=== PATIENT | male | born 1970 | race Caucasian/White ===

== ENCOUNTER 2021-06-19 11:42 | Inpatient (IN) | payer MEDICAID ==
[2021-06-19] VITALS (34 sets, daily range): BP systolic 57–122; BP diastolic 34–77
[~2021-06-19] VITALS: Ht 170.2 cm; Wt 77.1 kg
[2021-06-19] MEDS ORDERED: IV LR 1000 ML 1,000 ML BAG IV ONE (12:00)
--- NOTE | 2021-06-19 12:12 | NUR ---
PT BIBRA C/O LOW BP SBP IN 80. PT CONNECTED TO MONITOR BP IS 150/80.
[2021-06-19] MEDS ORDERED: CEFEPIME 2 GM in IV D5W 100 ML IV SCH (13:00)
[2021-06-19 13:21] LABS: CARBON DIOXIDE 21 mmol/L (21-32); CHLORIDE 114 mmol/L (98-107); CREATININE 1.8 mg/dL (0.6-1.3); GLUCOSE 121 mg/dL (74-106); SODIUM SERUM 153 mmol/L (136-145)
[2021-06-19 13:24] LABS: POTASSIUM 1.8 mmol/L (3.5-5.1); UREA NITROGEN, BLOOD 105 mg/dL (7-18)
[2021-06-19 13:26] LABS: ALANINE AMINOTRANSFERASE 42 U/L (12-78); ALKALINE PHOSPHATASE 159 U/L (46-116); ASPARTATE AMINOTRANSFERASE 23 U/L (15-37); BILIRUBIN,DIRECT 0.2 mg/dL (0.0-0.2); BILIRUBIN,TOTAL 0.7 mg/dL (0.2-1.0); TOTAL PROTEIN, SERUM 7.4 g/dL (6.4-8.2)
[2021-06-19] MEDS ORDERED: ASPIRIN 300 MG/SUPP.RECT RC ONE ×2 (13:30→13:39)
[2021-06-19] MEDS ORDERED: DOXYCYCLINE 100 MG in IV D5W 100 ML IV SCH (13:30)
[2021-06-19] MEDS ORDERED: NOREPINEPHRINE 8 MG in IV NS 0.9% 242 ML IV PRN ×2 (13:30→18:30)
[2021-06-19] MEDS ORDERED: POTASSIUM CHLORIDE 20 MEQ TAB.PRT.SR PO ONE (13:30)
[2021-06-19] MEDS ORDERED: POTASSIUM CHLORIDE 10 MEQ/50 ML PREMIXED IVPB FOR PERIPHERAL LINE IV ONE (13:30)
[2021-06-19] MEDS ORDERED: VANCOMYCIN 1 GM in IV D5W 250ml IV ONE (13:30)
[2021-06-19 13:33] LABS: ALBUMIN 2.2 g/dL (3.4-5.0)
[2021-06-19] MEDS ORDERED: NOREPINEPHRINE 4 MG/4 ML AMPUL IV ONE (13:37)
[2021-06-19] MEDS ORDERED: POTASSIUM CL. PREMIX PERIPHER. 50 ML ONE (13:37)
[2021-06-19] MEDS ORDERED: CEFEPIME 1 GM VIAL ONE (13:37)
--- NOTE | 2021-06-19 13:49 | NUR ---
ICU 256 ASSIGNED
[2021-06-19] MEDS ORDERED: POTASSIUM CHLORIDE 20 MEQ POWDER PACKET PO ONE (14:00)
--- NOTE | 2021-06-19 14:07 | NUR ---
CALLED ICU FOR REPORT RN NOT AVAILABLE.
--- NOTE | 2021-06-19 14:34 | NUR ---
REPORT GIVEN TO TRANG (GEE).
[2021-06-19] MEDS ORDERED: POTASSIUM CHLORIDE 20 MEQ POWDER PACKET ONE (14:47)
[2021-06-19 14:55] LABS: MEAN CORPUSCULAR VOLUME 90 fL (80-96); MONOCYTES # (AUTO) 0.3 K/uL (0.1-1.30)
[2021-06-19 15:02] LABS: BASOPHILS # (AUTO) 0.1 K/uL (0.0-0.2); BASOPHILS % (AUTO) 0.5 % (0.0-2.0); LYMPHOCYTES # (AUTO) 1.3 K/uL (0.8-4.8); LYMPHOCYTES % (AUTO) 11.6 % (20.0-44.0); MEAN CORPUSCULAR HGB CONC 32 g/dl (31.0-36.0); MONOCYTES % (AUTO) 2.2 % (2.0-12.0); NEUTROPHILS # (AUTO) 9.6 K/uL (1.8-8.9); NEUTROPHILS % (AUTO) 85.7 % (43.0-81.0); PLATELET COUNT (AUTO) 427 K/uL (150-450); WHITE BLOOD COUNT (AUTO) 11.2 K/uL (4.3-11.0)
[2021-06-19 15:24] LABS: RED BLOOD CELL COUNT(AUTO) 1.83 MIL/uL (4.5-6.0)
[2021-06-19 15:26] LABS: HEMATOCRIT 17 % (39-51); HEMOGLOBIN 5.3 g/dL (13.5-17.5)
[2021-06-19] MEDS ORDERED: PANTOPRAZOLE 40 MG VIAL IV ONE (15:30)
[2021-06-19] MEDS ORDERED: PANTOPRAZOLE 40 MG VIAL ONE (15:59)
[2021-06-19] MEDS ORDERED: MEROPENEM 500 MG in IV NS 0.9% 50 ML IV SCH (16:00)
[2021-06-19] MEDS ORDERED: ONDANSETRON HCL/PF 4 MG/2 ML VIAL IVP PRN (16:00)
[2021-06-19] MEDS ORDERED: Z GUARD REMEDY 4 OZ OINT TP PRN (16:00)
[2021-06-19] MEDS ORDERED: DEXTROSE 50%-WATER 50 ML DISP.SYRIN IV PRN (16:00)
[2021-06-19 16:15] LABS: BAND % (MANUAL) 20 % (0.0-5.0); LYMPHOCYTES % (MANUAL) 19 % (16-48); METAMYELOCYTES % 1 % (0-0); MONOCYTES % (MANUAL) 5 % (0-11.0); NEUTROPHILS % (MANUAL) 55 (42-76)
--- NOTE | 2021-06-19 16:55 | NUR ---
PT TRANSFERRED PER ACLS PROTOCOL.
--- NOTE | 2021-06-19 17:00 | NUR ---
KEY ACCOUNT REPRESENTATIVE NOTES PATIENT GET ADMITTED FROM ER ON DX OF HYPERTENSIN, SEPSIS, PNA, AFR, ANEMIA. PATIENT NON-VERBAL TRACH/VENT SHILEY -8 DEPENDENT FIO2-40%, PEEP-5. PATIENTS EYES IS OPEN, UPPER AND LOWER EXTREMITIES SEVERE WEAKNESS, BED BOUND. SKIN ASSESSMENT DONE PICTURE TAKEN, IV ACCESS ON CALRE INTACT PICC LINE, WOUND CONSULT TRIGGERED. T-100.3F, P-132, R-29, O2-100%, GRECO DRAINING LIGHT YELLOW OUTPUT. GT IS DISLODGED AND CLAMPED. HOSPITALIST AWARE OF NEW PATIENT AND MEDICATION. GI MD AWARE OF CONSULTATION ABOUT GT. NEW ORDER TAKEN AND CARRIED OUT. WILL FOLLOW UP.
--- NOTE | 2021-06-19 17:49 | NUR ---
FAMILY CONTACT: DISPLAY MANAGER SPOKE TO PATIENTS SISTER DARIO NUÑEZ AND MARYAM MCKEON, PT'S ON THE PHONE TOGETHER TO GET CONSENT FOR BLOOD TRANSFUSION. PT'S MARYAM SPEAKS SOME HUNGARIAN BUT NOT WELL. DARIO REQUESTED THAT IF WE NEED TO GET A HOLD OF THE TO PLEASE CALL PT'S SISTER DARIO NUÑEZ AT [phone] AND SHE WILL GET PT'S MARYAM ON THE PHONE TO HELP TRANSLATE. MARYAM AGREED AND ALSO REQUESTED THAT WE CALL DAIRO AND SHE WILL GET MARYAM ON THE PHONE ALSO.
[2021-06-19] MEDS: BLOOD SUGAR DIAGNOSTIC 1 EACH STRIP IN SCH (18:09)
[2021-06-19] MEDS: MEROPENEM 1 G in IV NS 0.9% 100 ML IV SCH (18:10)
[2021-06-19] MEDS: IV D5/ 0.9% NACL 1,000 ML IV PRN (18:12)
--- NOTE | 2021-06-19 18:48 | NUR ---
RN NOTES STARTED ONE UNITS OF BLOOD TRANSFUSION AT THIS TIME, T99.6, R-28M BP113/69, P-130, O2100% PATIENT TRACH/VENT DEPENDENT. INFUSING LEVOPHED 0.5 MCG/KG/HR, D5NS@100ML/HR, AND MERREM 200ML/HR ON RIGHT PICC LINE INTACT. FIFE NEXT TO THE BED, ENDORSED ONCOMING NURSE FOLLOW PLAN OF CAR.
--- NOTE | 2021-06-19 19:05 | NUR ---
RECEIVED PT ON BED AWAKE EYES OPEN BUT NOT FOLLOWING COMMANDS, NO VERBAL. ON TRACH/VENT SETTING PER MD FIO2 40% SPO2 100% SINUS TACHY ON MONITOR 130'S WITH ONGOING BLOOD TRANSFUSION OF PRBC NO RESPIRATORY DISTRESS NOTED NO TRANSFUSION REACTION NOTED, ALSO WITH ONGOING D5NS @ 100ML/HR AND LEVOPHED 0.5 MCG/KG/MIN WILL TITRATE PER PROTOCOL, HAVE CHOLECYSTOSTOMY BAG ON PLACE ON R LAT CHEST WITH ORANGE OUTPUT NOTED, HAVE GTUBE CLAMPED DISLODGED PER CT SCAN, FOR REPLACEMENT BY GI, MD IS AWARE PER AM NURSE, HAVE GRECO CATHETER IN PLACE WITH TEA COLORED URINE NOTED,BED ON LOWEST POSITION AND LOCKED SIDE RAILS UP X2 WILL CONT TO MONITOR
[2021-06-19] MEDS: ACETAMINOPHEN 650 MG/SUPP.RECT RC PRN (19:08)
--- NOTE | 2021-06-19 19:10 | NUR ---
RN NOTES T-102.2F, P-128. BP 106/61, R-29, INCREASED INFUSION @120 ML/HR. NIGHT NURSE WILL FOLLOW UP.
[2021-06-19] MEDS: POTASSIUM CL. PREMIX PERIPHER. 50 ML IV SCH ×3 (20:56→23:59)
[2021-06-19] MEDS: HYDROCORTISONE SOD SUCCINATE 100 MG/2 ML VIAL IV SCH (20:56)
--- NOTE | 2021-06-19 20:57 | NUR ---
REPORTED TO DR HODGE ABOUT THE K+ 1.2, MADE AN ORDER FOR KCL 30 MEQ IV THE REPEAT K+ AFTER 4 HOURS OF LAST DOSE NOTED AND CARRIED OUT
--- NOTE | 2021-06-19 22:35 | NUR ---
REPORTED TO DR HODGE OF TROPONIN RESULT OF 1531 WITH ORDER TO REPEAT TROPONIN AFTER 3 HOURS X2 3 HOURS APART NOTED AND CARRIED OUT
[2021-06-20] VITALS (58 sets, daily range): BP systolic 81–121; BP diastolic 53–81
[2021-06-20] MEDS: BLOOD SUGAR DIAGNOSTIC 1 EACH STRIP IN SCH ×5 (00:19→23:17)
[2021-06-20] MEDS: INSULIN REGULAR, HUMAN 100 UNIT/ML 3 ML VIAL SQ PRN ×3 (00:21→23:17)
[2021-06-20] MEDS: VANCOMYCIN HCL 0.75 GM in IV D5W 250 ML IV SCH ×2 (01:24→13:27)
[2021-06-20] MEDS: IV D5/ 0.9% NACL 1,000 ML IV PRN (04:37)
[2021-06-20] MEDS: MEROPENEM 1 G in IV NS 0.9% 100 ML IV SCH ×2 (05:05→16:15)
[2021-06-20] MEDS: HYDROCORTISONE SOD SUCCINATE 100 MG/2 ML VIAL IV SCH (05:05)
[2021-06-20 05:14] LABS: BASOPHILS % (AUTO) 0.1 % (0.0-2.0); HEMATOCRIT 26 % (39-51); HEMOGLOBIN 8.8 g/dL (13.5-17.5); LYMPHOCYTES # (AUTO) 1.3 K/uL (0.8-4.8); LYMPHOCYTES % (AUTO) 7.1 % (20.0-44.0); MEAN CORPUSCULAR HGB CONC 33 g/dl (31.0-36.0); MEAN CORPUSCULAR VOLUME 88 fL (80-96); MONOCYTES # (AUTO) 0.3 K/uL (0.1-1.30); MONOCYTES % (AUTO) 1.6 % (2.0-12.0); NEUTROPHILS # (AUTO) 17.1 K/uL (1.8-8.9); NEUTROPHILS % (AUTO) 91.2 % (43.0-81.0); PLATELET COUNT (AUTO) 334 K/uL (150-450); WHITE BLOOD COUNT (AUTO) 18.8 K/uL (4.3-11.0)
[2021-06-20 05:38] LABS: CALCIUM, SERUM 8.2 mg/dL (8.5-10.1); CARBON DIOXIDE 21 mmol/L (21-32); CHLORIDE 117 mmol/L (98-107); CREATININE 1.6 mg/dL (0.6-1.3); GLUCOSE 174 mg/dL (74-106); MAGNESIUM 2.4 mg/dL (1.8-2.4); SODIUM SERUM 154 mmol/L (136-145)
[2021-06-20 05:41] LABS: POTASSIUM 1.3 mmol/L (3.5-5.1); UREA NITROGEN, BLOOD 98 mg/dL (7-18)
--- NOTE | 2021-06-20 06:56 | NUR ---
REPORTED TO DR HODGE ABOUT K+ LVL 1.2 AND BUN 98 CREA 1.6 WITH ORDER FOR REPEAT K+ LVL @ 1000 AND REFER ACCORDINGLY, CHARGE NURSE MADE AWARE NOTED AND CARRIED OUT
--- NOTE | 2021-06-20 08:00 | NUR ---
RN NOTES RECEIVED PATIENT TRACHEA/VENT DEPENDENT, TOTAL CARE, NO ACUTE RESPIRATORY DISTRESS. PATIENT HAS LOW KCL 1.3 LEVEL, GET NEW ORDER VIA Dr HWEELER FOR COVERAGE [id number] BAGS. GT CLAMPED, CHOLECYSTOMY BAG INTACT. GRECO DRAINING LIGHT OUTPUT. KEEP HOB ELEVATED, ASSIST TURN AND REPOSTION Q 2 HR. WILL FOLLOW UP.
[2021-06-20] MEDS: POTASSIUM CL. PREMIX PERIPHER. 50 ML IV SCH ×14 (08:09→23:06)
[2021-06-20] MEDS: PANTOPRAZOLE 40 MG VIAL IV SCH (08:17)
[2021-06-20] MEDS ORDERED: ASCO-352 GT (08:36)
[2021-06-20] MEDS ORDERED: ACET-868 GT (08:36)
[2021-06-20] MEDS ORDERED: TRAM50TA2 GT (08:36)
[2021-06-20] MEDS ORDERED: CRAN425C6 GT (08:36)
[2021-06-20] MEDS ORDERED: ALBU8.5H8 IH ×2 (08:36)
[2021-06-20] MEDS ORDERED: INSU100V39 SQ (08:36)
[2021-06-20] MEDS ORDERED: POLY17PO4 GT (08:36)
[2021-06-20] MEDS ORDERED: ONDA4TAB5 GT (08:36)
[2021-06-20] MEDS ORDERED: AMIN30LI2 GT (08:36)
[2021-06-20] MEDS ORDERED: NUT.237L67 GT (08:36)
[2021-06-20] MEDS ORDERED: AMLO-213 GT (08:36)
[2021-06-20] MEDS ORDERED: LACT10SO3 GT (08:36)
[2021-06-20] MEDS ORDERED: LEVE100S GT (08:36)
[2021-06-20] MEDS ORDERED: NA P133E RC (08:36)
[2021-06-20] MEDS ORDERED: BISA10SU11 RC (08:36)
[2021-06-20] MEDS ORDERED: MULT-447 GT (08:36)
[2021-06-20] MEDS ORDERED: MAGN400O6 GT (08:36)
[2021-06-20] MEDS ORDERED: ZINC50TA69 GT (08:36)
[2021-06-20] MEDS ORDERED: LABE100T5 GT (08:36)
[2021-06-20] MEDS ORDERED: CLON0.1T GT (08:36)
[2021-06-20 09:11] LABS: THYROID STIMULATING HORMONE 0.043 uIU/mL (0.358-3.74)
[2021-06-20] MEDS: MORPHINE SULFATE INJ 2 MG/ML DISP.SYRIN IV PRN (12:40)
--- NOTE | 2021-06-20 12:40 | NUR ---
rn notes administered morphine sulfate 2 mg/ml iv push for generalized pain per patient request, 09/26. bp 97/67, p-126, r-33. bs-116mg/dl. infusing D5NS @ 100 ml/hr, and kcl 50ml/hr. assist turn and reposition q 2 hr.
[2021-06-20] MEDS: IV D5/0.45 NACL 1,000 ML IV PRN (15:00)
[2021-06-20] MEDS: POTASSIUM PHOSPHATE MM 7.5 MMOL in IV NS 0.9% 100 ML IV SCH ×2 (18:21→21:31)
--- NOTE | 2021-06-20 19:51 | NUR ---
REPORTED TO DR WHEELER OF K+ OF 2.2 WITH ORDER TO GIVE ANOTHER 100 MEQ KCL IV NOTED AND CARRIED OUT
[2021-06-21] VITALS (47 sets, daily range): BP systolic 78–96; BP diastolic 44–71
[2021-06-21] MEDS: POTASSIUM CL. PREMIX PERIPHER. 50 ML IV SCH ×6 (00:05→05:30)
[2021-06-21] MEDS: VANCOMYCIN HCL 0.75 GM in IV D5W 250 ML IV SCH (02:00)
--- NOTE | 2021-06-21 02:18 | NUR ---
REPORTED TO DR HODGE THAT PT BP IS LOW LATEST BP OF 78/66 AND HR OF 115-125 WITH ORDER TO GIVE NS BOLUS 1500 ML FOR NOW IF BP IS STILL LOW AFTER THE BOLUS MAY START NEOSYNEPHRINE TO TITRATE PER PROTOCOL NOTED AND CARRIED OUT
[2021-06-21] MEDS ORDERED: IV NS 0.9% 1,000 ML IV ONE (02:30)
[2021-06-21] MEDS ORDERED: IV NS 0.9% 500 ML IV ONE ×2 (02:30→09:00)
--- NOTE | 2021-06-21 03:14 | NUR ---
VANCO NON ADMIN DUE TO VANCO TROUGH OF 31
[2021-06-21] MEDS ORDERED: PHENYLEPHRINE 50 MG in IV NS 0.9% 245 ML IV PRN (03:30)
[2021-06-21] MEDS: IV D5/0.45 NACL 1,000 ML IV PRN ×2 (04:06→16:01)
[2021-06-21] MEDS: MEROPENEM 1 G in IV NS 0.9% 100 ML IV SCH ×2 (04:06→16:47)
[2021-06-21 04:48] LABS: BASOPHILS % (AUTO) 0.2 % (0.0-2.0); HEMATOCRIT 22 % (39-51); HEMOGLOBIN 7.2 g/dL (13.5-17.5); LYMPHOCYTES # (AUTO) 1.7 K/uL (0.8-4.8); LYMPHOCYTES % (AUTO) 13.2 % (20.0-44.0); MEAN CORPUSCULAR HGB CONC 33 g/dl (31.0-36.0); MEAN CORPUSCULAR VOLUME 87 fL (80-96); MONOCYTES # (AUTO) 0.3 K/uL (0.1-1.30); MONOCYTES % (AUTO) 2.5 % (2.0-12.0); NEUTROPHILS # (AUTO) 10.7 K/uL (1.8-8.9); NEUTROPHILS % (AUTO) 84.1 % (43.0-81.0); PLATELET COUNT (AUTO) 266 K/uL (150-450); RED BLOOD CELL COUNT(AUTO) 2.47 MIL/uL (4.5-6.0); WHITE BLOOD COUNT (AUTO) 12.7 K/uL (4.3-11.0)
[2021-06-21 05:22] LABS: ALBUMIN 1.5 g/dL (3.4-5.0); BILIRUBIN,TOTAL 0.5 mg/dL (0.2-1.0); CALCIUM, SERUM 7.4 mg/dL (8.5-10.1); CREATININE 1.3 mg/dL (0.6-1.3); MAGNESIUM 2.3 mg/dL (1.8-2.4); PHOSPHORUS 3.4 mg/dL (2.5-4.9); POTASSIUM 3.9 mmol/L (3.5-5.1)
[2021-06-21] MEDS: INSULIN REGULAR, HUMAN 100 UNIT/ML 3 ML VIAL SQ PRN (07:01)
[2021-06-21] MEDS: BLOOD SUGAR DIAGNOSTIC 1 EACH STRIP IN SCH ×4 (07:01→23:59)
--- NOTE | 2021-06-21 08:00 | NUR ---
rn notes received patient awake able to whisper needs, no acute respiratory distress, patient trachea/vent dependent, peep -5, fio2-40%, patient total care, infusing d51/2 ns @100ml/hr on CLARE intact, manuel draining light yellow output. bp 79/56 map is 65, per hospitalist Dr Cohen if map is 65 do not start Levophed. cholecystomy bag draining well. assist turn and reposition q 2 hr, due mediation administered, seen patient via wound nurse. will follow up.
--- NOTE | 2021-06-21 08:13 | NUR ---
WOUND CARE CONSULT: PT PRESENTS WITH SACRAL UNSTAGEABLE PRESSURE ULCER, PRESENT ON ADMISSION. RECOMMENDATIONS MADE FOR SKIN PROTECTION. [facility] SURGICAL CONSULT CALLED TO DR KOHANZADEH. ISSA IN AGREEMENT WITH PLAN OF CARE. PT IS ON WALDEMAR ISOFLEX LOW AIRLOSS BED. Addendum: 06/21/21 at 0814 by VIN LAL WNDNU Amended: Links added.
[2021-06-21] MEDS: PANTOPRAZOLE 40 MG VIAL IV SCH (08:57)
--- NOTE | 2021-06-21 13:00 | NUR ---
rn notes seen hospitalist, and certified prosthetist vice president get TO order to insert NGT, and flash with water 300 ml of water q6hr. gt clamped.
[2021-06-21] MEDS ORDERED: VANCOMYCIN HCL 0.75 GM in IV D5W 250 ML IV SCH (18:00)
--- NOTE | 2021-06-21 18:00 | NUR ---
rn notes bs- 82mg/dl, due medication administered, vss, no acute respiratory distress, pm care done. flashed 300ml of water, next to the bed.
--- NOTE | 2021-06-21 19:15 | NUR ---
RN OPENING NOTES RECEIVED PATIENT ON BED, AWAKE, NON VERBAL, OPEN EYES, ON MECHANICAL VENTILATION SETTINGS TOLERATED WELL, RESPIRATORY EVEN AND UNLABORED, NO S/S OF DISTRESS NOTED. PATIENT REMAIN AFEBRILE. PATIENT NOTED WITH CLARE PICC LINE, LAC #20G PERIPHERAL LINE INTACT IN PLACED, FLUSHED WITH NS, NO S/S OF INFILTRATION NOTED AT SITES. RUNNING WITH D5 1/2NS @ 100 ML/HR. NOTED WITH DISLODGED PEG TUBE, CLAMPED. WITH NGTUBE INSERTED TO RIGHT NARES, VERIFIED PLACEMENT BY AUSCULTATION, NO RESIDUAL NOTED UPON ASPIRATION, WITH GRECO CATHETER IN PLACE AND DRAINING WITH CLEAR YELLOW URINE VIA GRAVITY, CHOLECYSTOSTOMY DRAIN IN PLACED. ALL SAFETY PRECAUTION PROVIDED, BED IN LOWEST POSITION, LOCKED. CONTINUE TO MONITOR.
[2021-06-21] MEDS: MORPHINE SULFATE INJ 2 MG/ML DISP.SYRIN IV PRN (19:16)
--- NOTE | 2021-06-21 19:16 | NUR ---
rn notes administered morphine sulfate 2 mg/ml iv push per patient request 08/27 for generalized pain. bp- 96/67. p-11, r-35 endorsed oncoming nurse lu.
[2021-06-22] VITALS (32 sets, daily range): BP systolic 50–134; BP diastolic 24–90
--- NOTE | 2021-06-22 | NUR ---
RN NOTES BLOOD SUGAR 78mg/dL, NO INSULIN COVERAGE PER SLIDING SCALE.
--- NOTE | 2021-06-22 00:10 | NUR ---
RN NOTES PATIENT NOTED WITH TEMPERATURE 100.5 F, COOLING MEASURE PROVIDED, ACETAMINOPHEN 650MG SUPPOSITORY GIVES PER MD'S ORDERED. CONTINUE TO MONITOR.
[2021-06-22] MEDS: ACETAMINOPHEN 650 MG/SUPP.RECT RC PRN (00:12)
--- NOTE | 2021-06-22 01:00 | NUR ---
RN NOTES TEMPERATURE RECHECKED OBTAINED 99.3 F, CONTINUE TO PROVIDE COOLING MEASURE. CONTINUE TO MONITOR
[2021-06-22] MEDS: IV D5/0.45 NACL 1,000 ML IV PRN ×2 (01:44→11:43)
[2021-06-22] MEDS: MORPHINE SULFATE INJ 2 MG/ML DISP.SYRIN IV PRN (04:00)
--- NOTE | 2021-06-22 04:00 | NUR ---
RN NOTES ADMINISTERED MORPHINE SULFATE 2 MG/ML IV PER PATIENT REQUEST, 10/27 GEERALIZED BODY PAIN, BP- 107/77, P-112, R-19. rn notes administered morphine sulfate 2 mg/ml iv push per patient request 08/27 for generalized pain. bp- 96/67. p-11, r-35 endorsed oncoming nurse lu
[2021-06-22] MEDS: MEROPENEM 1 G in IV NS 0.9% 100 ML IV SCH ×2 (04:55→16:00)
[2021-06-22] MEDS: INSULIN REGULAR, HUMAN 100 UNIT/ML 3 ML VIAL SQ PRN ×4 (06:00→18:26)
[2021-06-22] MEDS: BLOOD SUGAR DIAGNOSTIC 1 EACH STRIP IN SCH ×3 (06:00→18:26)
--- NOTE | 2021-06-22 06:04 | NUR ---
RN NOTES BLOOD SUGAR 85mg/dL, NO INSULIN COVERAGE PER SLIDING SCALE.
[2021-06-22 06:13] LABS: BASOPHILS % (AUTO) 0.1 % (0.0-2.0); EOSINOPHILS % (AUTO) 0.1 % (0.0-6.0); LYMPHOCYTES # (AUTO) 1.3 K/uL (0.8-4.8); LYMPHOCYTES % (AUTO) 8.5 % (20.0-44.0); MEAN CORPUSCULAR HGB CONC 33 g/dl (31.0-36.0); MEAN CORPUSCULAR VOLUME 88 fL (80-96); MONOCYTES # (AUTO) 0.3 K/uL (0.1-1.30); MONOCYTES % (AUTO) 1.9 % (2.0-12.0); NEUTROPHILS # (AUTO) 13.3 K/uL (1.8-8.9); NEUTROPHILS % (AUTO) 89.4 % (43.0-81.0); PLATELET COUNT (AUTO) 244 K/uL (150-450); RED BLOOD CELL COUNT(AUTO) 2.17 MIL/uL (4.5-6.0); WHITE BLOOD COUNT (AUTO) 14.9 K/uL (4.3-11.0)
[2021-06-22 06:24] LABS: HEMATOCRIT 19 % (39-51); HEMOGLOBIN 6.3 g/dL (13.5-17.5)
[2021-06-22 06:28] LABS: BILIRUBIN,TOTAL 0.6 mg/dL (0.2-1.0); CALCIUM, SERUM 7.3 mg/dL (8.5-10.1); CREATININE 0.9 mg/dL (0.6-1.3); PHOSPHORUS 3.2 mg/dL (2.5-4.9); POTASSIUM 2.9 mmol/L (3.5-5.1); TOTAL PROTEIN, SERUM 5.5 g/dL (6.4-8.2)
--- NOTE | 2021-06-22 06:30 | NUR ---
RN NOTES PAGED DR. HODGE REGARDING HEMOGLOBIN-6.3, HEMATOCRIT- 19, POTASSIUM-2.9 ALBUMIN-1.4, WAITIMG FOR CALL BACK.
[2021-06-22 06:39] LABS: ALBUMIN 1.4 g/dL (3.4-5.0)
--- NOTE | 2021-06-22 07:09 | NUR ---
RN NOTES NO SIGNIFICANT CHANGES THROUGH OUT THE SHIFT, RESPIRATORY EVEN AND UNLABORED, NO S/S OF DISTRESS NOTED. PATIENT REMAIN AFEBRILE. RUNNING WITH D5 1/2NS @ 100 ML/HR. NOTED WITH DISLODGED PEG TUBE, CLAMPED. WITH NG TUBE INSERTED TO RIGHT NARES, VERIFIED PLACEMENT BY AUSCULTATION, NO RESIDUAL NOTED UPON ASPIRATION, WITH GRECO CATHETER IN PLACE AND DRAINING WITH CLEAR YELLOW URINE VIA GRAVITY, CHOLECYSTOSTOMY DRAIN IN PLACED. ALL DUE MEDS GIVEN ORDERED. ALL SAFETY PRECAUTION PROVIDED, BED IN LOWEST POSITION, LOCKED. ENDORSED TO NEXT SHIFT
--- NOTE | 2021-06-22 07:30 | NUR ---
RN OPENING NOTE PT RECEIVED IN BED WITH HOB >30. PT IS ON MECHANICAL VENT WITH ALL PRESCRIBED SETTINGS SAT 100% TOLERATING WELL WITH NO SIGNS OF LABORED BREATHING OR DISTRESS. PT IS NON VERBAL AND NODS HEAD WHEN ANSWERING SIMPLE QUESTIONS. PT TELE MONITORED ST. PEG IS CLAMPED AT THIS TIME AND NOT WORKING MD IS AWARE; PT HAS NG AT THIS TIME AND CLAMPED. PT HAS CHOLECYSTOSTOMY DRAIN; FC DRAINING URINE TO GRAVITY. IV ACCESS R UA PICC INFUSING WITH D5 1/2 NS @100ML/HR AND L AC 20G. BED IS LOCKED IN LOWEST POSITION X 2 BED RAILS UP, CALL LIGHT IS WITHIN REACH AND ALL HOSPITAL SAFETY PROTOCOLS ARE IN PLACE. WILL CONTINUE TO MONITOR THIS SHIFT.
[2021-06-22] MEDS: VANCOMYCIN HCL 0.75 GM in IV D5W 250 ML IV SCH (07:56)
[2021-06-22] MEDS: PANTOPRAZOLE 40 MG VIAL IV SCH (08:04)
--- NOTE | 2021-06-22 09:15 | NUR ---
RN NOTE PER DR GOMEZ, FREE WATER FLUSHED CHANGED FROM Q6H TO Q4H.
[2021-06-22] MEDS: ACETAMINOPHEN 650 MG/20.3 ML UDC NG PRN ×2 (09:20→22:30)
[2021-06-22] MEDS: POTASSIUM CL. PREMIX PERIPHER. 50 ML IV SCH ×6 (09:54→15:49)
--- NOTE | 2021-06-22 11:53 | NUR ---
RN NOTE PT BS 105. PER SLIDING SCALE, NO COVERAGE NEEDED AT THIS TIME.
[2021-06-22] MEDS: SOD FERRIC GLUC 125 MG in IV NS 0.9% 100 ML IV SCH (14:03)
[2021-06-22 15:57] LABS: LYMPHOCYTES % (MANUAL) 4 % (16-48); MONOCYTES % (MANUAL) 2 % (0-11.0); NEUTROPHILS % (MANUAL) 94 (42-76)
[2021-06-22] MEDS ORDERED: IV NS 0.9% 250 ML IV PRN (17:30)
--- NOTE | 2021-06-22 18:26 | NUR ---
RN NOTE PT BS 71, PER SLIDING SCALE NO COVERAGE NEEDED AT THIS TIME.
--- NOTE | 2021-06-22 18:43 | NUR ---
RN CLOSING NOTE PT IS IN BED WITH HOB >30. PT IS ON MECHANICAL VENT WITH ALL PRESCRIBED SETTINGS SAT 100% TOLERATING WELL WITH NO SIGNS OF LABORED BREATHING OR DISTRESS. PT IS NON VERBAL AND NODS HEAD WHEN ANSWERING SIMPLE QUESTIONS. PT TELE MONITORED ST. PEG IS CLAMPED AT THIS TIME AND NOT WORKING MD IS AWARE; PT HAS NG AT THIS TIME AND CLAMPED. PT HAS CHOLECYSTOSTOMY DRAIN -100ML; FC DRAINING URINE TO GRAVITY -1700ML. IV ACCESS R UA PICC INFUSING WITH D5 1/2 NS @100ML/HR AND L AC 20G. PT IS CURRENTLY RECEIVING 1 UNIT PRBC AT THIS TIME TOLERATING WELL. PT RECEIVED 60 MEQ KCL THIS SHIFT. BED IS LOCKED IN LOWEST POSITION X 2 BED RAILS UP, CALL LIGHT IS WITHIN REACH AND ALL HOSPITAL SAFETY PROTOCOLS ARE IN PLACE. WILL ENDORSE TO ADMIN ASSISTANT NURSE FOR KIERSTEN.
[2021-06-22 20:09] LABS: OCCULT BLOOD STOOL NEGATIVE (NEGATIVE)
[2021-06-22] MEDS ORDERED: LIDOCAINE 2%-EPI 1:100,000 30 ML VIAL TP ONE (20:30)
[2021-06-22] MEDS ORDERED: SILVER NITRATE APPLICATOR 1 EA BOX TP PRN (20:30)
--- NOTE | 2021-06-22 20:30 | NUR ---
ICU/ENDLESS BED DRUM SANDER FOUND MD CHRISTYISK DOCUMENTATION THAT CHANGES FREE WATER FLUSH TO EVERY 4 HOURS NOT 6 HRS. THIS WAS UPDATED TO REFLECT THIS.
--- NOTE | 2021-06-22 20:58 | NUR ---
ICU/TRAVERSE ROD ASSEMBLER CAME IN EXPRESSED CONCERNS ABOUT GOING BACK TO [facility]. SAID SHE WOULD LIKE A DIFFERENT SNF PLACEMENT SUCH [facility] ON THE SECOND FLOOR. SOCIAL SERVICE CONSULT PUT IN AND ALSO WOULD LIKE A MEDICAL LAB ASSISTANT.
--- NOTE | 2021-06-22 21:30 | NUR ---
ICU/IMPORT CLERK FAMILY AT BEDSIDE.
--- NOTE | 2021-06-22 22:00 | NUR ---
ICU/TYRE BUILDER NOTICED THAT DR GOMEZ PLACED AN ORDER FOR CHANGE OF IVF TO D5W PLUS 40MEQ KCL @75ML. NOTIFED CHARGE HOWEVER PHARMACY IS GONE. CAME UP WITH A DIFFERENT SOLUTION TO PUSH THE NA OUT OF THE CELL. 500ML OF D5W AT 60ML PLUS 20MEQ KCL AT 15ML FOR A TOTAL OF 75ML, WHICH WILL BE THE SAME D5W@40MEQ. NIGHT PHARMACY CALLED TO ASK IF THIS IS OK, THEY AGREED THIS WAS THE SAME.
[2021-06-22] MEDS ORDERED: POTASSIUM CL. PREMIX PERIPHER. 100 ML ONE (23:29)
[2021-06-22] MEDS: Potassium Chloride 40 MEQ in IV D5W 1,000 ML IV PRN (23:50)
[2021-06-23] VITALS (38 sets, daily range): BP systolic 93–144; BP diastolic 63–98
[2021-06-23] MEDS: BLOOD SUGAR DIAGNOSTIC 1 EACH STRIP IN SCH ×4 (00:34→18:47)
[2021-06-23] MEDS: MEROPENEM 1 G in IV NS 0.9% 100 ML IV SCH ×2 (04:31→17:43)
[2021-06-23 06:48] LABS: BASOPHILS % (AUTO) 0.2 % (0.0-2.0); EOSINOPHILS % (AUTO) 0.4 % (0.0-6.0); HEMATOCRIT 25 % (39-51); HEMOGLOBIN 8.2 g/dL (13.5-17.5); LYMPHOCYTES # (AUTO) 1.3 K/uL (0.8-4.8); LYMPHOCYTES % (AUTO) 12.8 % (20.0-44.0); MEAN CORPUSCULAR HGB CONC 33 g/dl (31.0-36.0); MEAN CORPUSCULAR VOLUME 86 fL (80-96); MONOCYTES # (AUTO) 0.4 K/uL (0.1-1.30); MONOCYTES % (AUTO) 3.7 % (2.0-12.0); NEUTROPHILS # (AUTO) 8.2 K/uL (1.8-8.9); NEUTROPHILS % (AUTO) 82.9 % (43.0-81.0); PLATELET COUNT (AUTO) 246 K/uL (150-450); WHITE BLOOD COUNT (AUTO) 9.9 K/uL (4.3-11.0)
[2021-06-23] MEDS: Potassium Chloride 40 MEQ in IV D5W 1,000 ML IV PRN (07:11)
--- NOTE | 2021-06-23 07:30 | NUR ---
RN OPENING NOTE PT RECEIVED IN BED WITH HOB >35. PT IS ON MECHANICAL VENT WITH ALL PRESCRIBED SETTINGS SAT 100% TOLERATING WELL WITH NO SIGNS OF LABORED BREATHING OR DISTRESS. PT IS NON VERBAL AND NODS HEAD WHEN ANSWERING SIMPLE QUESTIONS. PT TELE MONITORED ST. PEG IS CLAMPED AT THIS TIME AND NOT WORKING MD IS AWARE; PT HAS NG RIGHT NARE AT THIS TIME AND CLAMPED. WILL ASK FOR OFFICIAL TF ORDERS, TODAY. PT HAS CHOLECYSTOSTOMY DRAIN -100ML; FC DRAINING URINE TO GRAVITY. IV ACCESS R UA PICC INFUSING WITH D5W +40MEQ KCL @75ML/HR AND L AC 20G. PARK INTERPRETIVE RANGER CONSULT SCHEDULED FOR TODAY REGARDING REQUEST FOR PT TO BE MOVED FROM SNF TO [facility]. BED IS LOCKED IN LOWEST POSITION X 2 BED RAILS UP, CALL LIGHT IS WITHIN REACH AND ALL HOSPITAL SAFETY PROTOCOLS ARE IN PLACE. WILL CONTINUE TO MONITOR THIS SHIFT.
[2021-06-23 07:36] LABS: CALCIUM, SERUM 7.3 mg/dL (8.5-10.1); CREATININE 0.7 mg/dL (0.6-1.3); POTASSIUM 2.9 mmol/L (3.5-5.1)
[2021-06-23] MEDS: VANCOMYCIN HCL 0.75 GM in IV D5W 250 ML IV SCH (08:26)
[2021-06-23] MEDS: PANTOPRAZOLE 40 MG VIAL IV SCH (08:26)
[2021-06-23] MEDS ORDERED: POTASSIUM CHLORIDE 20 MEQ POWDER PACKET NG SCH (09:00)
[2021-06-23] MEDS ORDERED: DIATR MEGLU/DIATRIZOATE SODIUM 30 ML BOTTLE (GASTROGRAPHIN) ONE (11:06)
[2021-06-23] MEDS: PANTOPRAZOLE 40 MG/PACK PACK NG SCH (12:18)
[2021-06-23] MEDS: INSULIN REGULAR, HUMAN 100 UNIT/ML 3 ML VIAL SQ PRN ×2 (12:23→18:47)
[2021-06-23] MEDS ORDERED: POTASSIUM CHLORIDE 20 MEQ POWDER PACKET NG ONE (13:00)
[2021-06-23] MEDS: POTASSIUM CHLORIDE IV SCH (13:04)
[2021-06-23] MEDS: D5 IV SCH (13:04)
[2021-06-23] MEDS: NACL IV SCH (13:04)
[2021-06-23] MEDS: SOD FERRIC GLUC 125 MG in IV NS 0.9% 100 ML IV SCH (14:53)
[2021-06-23] MEDS: ACETAMINOPHEN 650 MG/20.3 ML UDC NG PRN (15:02)
[2021-06-23] MEDS: DAKINS QUARTER STRENGTH (0.125%) 480 ML BOTTLE TOP SCH ×2 (16:17→17:07)
[2021-06-23] MEDS: JEVITY 1.2 CAL 1,000 ML BOTTLE GT PRN (17:42)
--- NOTE | 2021-06-23 19:37 | NUR ---
RN CLOSING NOTE PT IN IN BED WITH HOB HIGH FOWLERS. PT IS ON MECHANICAL VENT WITH ALL PRESCRIBED SETTINGS SAT 100% TOLERATING WELL WITH NO SIGNS OF LABORED BREATHING OR DISTRESS. PT IS NON VERBAL AND NODS HEAD WHEN ANSWERING SIMPLE QUESTIONS. PT TELE MONITORED ST. PEG IS CLAMPED AT THIS TIME AND NOT WORKING MD IS AWARE; PT HAS NG RIGHT NARE AT THIS TIME INFUSING WITH JEVITY 1.2 @30ML/HR. PT HAS CHOLECYSTOSTOMY DRAIN -200ML; FC DRAINING URINE TO GRAVITY -1400ML. IV ACCESS R UA PICC INFUSING WITH D5 11/2 NS +60MEQ KCL @75ML/HR AND L AC 20G. BED IS LOCKED IN LOWEST POSITION X 2 BED RAILS UP, CALL LIGHT IS WITHIN REACH AND ALL HOSPITAL SAFETY PROTOCOLS ARE IN PLACE. WILL ENDORSE TO MANIFOLD OPERATOR NURSE FOR KIERSTEN.
[2021-06-24] VITALS (24 sets, daily range): BP systolic 82–113; BP diastolic 53–80
[2021-06-24] MEDS: BLOOD SUGAR DIAGNOSTIC 1 EACH STRIP IN SCH ×4 (00:23→18:04)
[2021-06-24] MEDS: POTASSIUM CHLORIDE IV SCH (01:42)
[2021-06-24] MEDS: NACL IV SCH (01:42)
[2021-06-24] MEDS: D5 IV SCH (01:42)
[2021-06-24] MEDS: ACETAMINOPHEN 650 MG/20.3 ML UDC NG PRN (01:49)
--- NOTE | 2021-06-24 02:00 | NUR ---
ICU/BOX TURNER TYLENOL GIVEN FOR PAIN 06/27. WILL MONITOR THIS PT FOR PAIN.
[2021-06-24 04:13] LABS: BASOPHILS % (AUTO) 0.1 % (0.0-2.0); EOSINOPHILS % (AUTO) 0.5 % (0.0-6.0); HEMATOCRIT 25 % (39-51); HEMOGLOBIN 8.2 g/dL (13.5-17.5); LYMPHOCYTES # (AUTO) 1.4 K/uL (0.8-4.8); LYMPHOCYTES % (AUTO) 14.7 % (20.0-44.0); MEAN CORPUSCULAR HGB CONC 33 g/dl (31.0-36.0); MEAN CORPUSCULAR VOLUME 86 fL (80-96); MONOCYTES # (AUTO) 0.4 K/uL (0.1-1.30); NEUTROPHILS # (AUTO) 7.6 K/uL (1.8-8.9); NEUTROPHILS % (AUTO) 80.7 % (43.0-81.0); PLATELET COUNT (AUTO) 260 K/uL (150-450); RED BLOOD CELL COUNT(AUTO) 2.89 MIL/uL (4.5-6.0); WHITE BLOOD COUNT (AUTO) 9.4 K/uL (4.3-11.0)
[2021-06-24 04:43] LABS: CALCIUM, SERUM 7.6 mg/dL (8.5-10.1); CREATININE 0.7 mg/dL (0.6-1.3); MAGNESIUM 1.4 mg/dL (1.8-2.4); PHOSPHORUS 3.2 mg/dL (2.5-4.9); POTASSIUM 4.4 mmol/L (3.5-5.1)
[2021-06-24] MEDS: MEROPENEM 1 G in IV NS 0.9% 100 ML IV SCH ×2 (04:50→17:24)
--- NOTE | 2021-06-24 07:30 | NUR ---
OPENING NOTE: REPORT RECEIVED FROM VIVIANA BECK. ORDERS, LABS AND MEDS REVIEWED AT THIS TIME. STABLE TRACH VENT PATIENT. TRANSFER TO TELE ORDERS PENDING BED AVAILABILITY. SACRAL WOUND DEBRIDEMENT PENDING AMENIA STABLE X 48 HOURS PER ALEXIS HUMPHREYS NOTE. GRECO CATHETER DRAINING WITHOUT DIFFICULTY. PT CHECKED ON HOURLY AND PRN BY NURSING STAFF.
[2021-06-24] MEDS: VANCOMYCIN HCL 0.75 GM in IV D5W 250 ML IV SCH (08:47)
[2021-06-24] MEDS: PANTOPRAZOLE 40 MG/PACK PACK NG SCH (08:47)
[2021-06-24] MEDS: DAKINS QUARTER STRENGTH (0.125%) 480 ML BOTTLE TOP SCH (08:48)
[2021-06-24] MEDS ORDERED: Magnesium 1GM/D5W 100ML PREMIX 100 ML IV SCH (10:00)
[2021-06-24] MEDS: Magnesium 1GM/D5W 100ML PREMIX 100 ML IV SCH ×2 (10:20→11:18)
--- NOTE | 2021-06-24 14:30 | NUR ---
PT TRANSFERRED TO ROOM 311-1 PER ACLS PROTOCOL WITH RT AND PESTICIDE APPLICATOR AT BEDSIDE DURING TRANSPORT. ALL BELONGINGS AND MEDS SENT WITH PATIENT. PT'S AWARE OF NEW ROOM NUMBER. UPDATES GIVEN TO BROACH GRINDER.
--- NOTE | 2021-06-24 14:35 | NUR ---
MS CARD WRITER HAND NOTE PT RECEIVED FROM ICU. REPORT RECEIVED FROM [facility] REP. ALL BELONGINGS WITH PATIENT AND MEDS PLACED IN CASSETTE. ORIENTED PT TO UNIT, STAFF AND CALL LIGHT. A/O X 3 ABLE TO NOD YES AND NO. VITALS STABLE. KEPT PT CLEAN DRY AND COMFORTABLE. SAFETY MEASURES IN PLACE. CALL LIGHT IS WITHIN REACH. WILL CONT. TO MONITOR THROUGHOUT SHIFT.
[2021-06-24] MEDS: JEVITY 1.2 CAL 1,000 ML BOTTLE GT PRN (15:21)
[2021-06-24] MEDS: SOD FERRIC GLUC 125 MG in IV NS 0.9% 100 ML IV SCH (16:30)
--- NOTE | 2021-06-24 18:59 | NUR ---
MANUFACTURING QUALITY INSPECTOR CLOSING NOTE PT IN BED RESTING WITH EYES OPEN .A/O X 3 ABLE TO NOD "YES" AND "NO". NO SOB. NO S/SX OF DISTRESS NOTED. PT ON VENT SETTINGS S#8, AC 16, TV 450, FI02 30%, PEEP 0 TOLERATING WELL. IV ACCESS CLARE PICC AND LAC#20 PATENT AND INTACT. KEPT PT CLEAN DRY AND COMFORTABLE. SAFETY MEASURES IN PLACE. CALL LIGHT IS WITHIN REACH. ALL NEED SMET THROUGHOUT SHIFT. WILL ENDORSE CONTINUITY OF CARE TO ONCOMING SHIFT.
--- NOTE | 2021-06-24 19:26 | NUR ---
BEEF GRINDER OPENING NOTE PATIENT RECEIVED AWAKE IN BED. A/OX 2-3. NON S/S OF DISTRESS, BREATHING BY VENT W/O DIFFICULTY. CLARE PICC LINE INTACT AND PATENT; LAC #20 INTACT AND PATENT. TELE MONITOR REVEALS ST 114. NGT W/ NEPRO 30ML/HR. SAFETY MEASURES IN PLACE: BE AT LOWEST POSITION, RAILS UP X3, CALL LIGHT WITHIN REACH. WILL CONTINUE TO MONITOR PATIENT.
[2021-06-25] VITALS: BP 112/76
[2021-06-25] MEDS: BLOOD SUGAR DIAGNOSTIC 1 EACH STRIP IN SCH ×4 (00:30→17:32)
[2021-06-25] MEDS: INSULIN REGULAR, HUMAN 100 UNIT/ML 3 ML VIAL SQ PRN (00:30)
[2021-06-25] MEDS: MORPHINE SULFATE INJ 2 MG/ML DISP.SYRIN IV PRN (00:36)
[2021-06-25 04:00] VITALS: BP 119/86
[2021-06-25] MEDS: MEROPENEM 1 G in IV NS 0.9% 100 ML IV SCH ×2 (05:06→17:31)
--- NOTE | 2021-06-25 06:42 | NUR ---
CLEANING CREW MEMBER CLOSING NOTE PATIENT IS AWAKE IN BED. A/OX3. NO S/S OF DISTRESS, BREATHING BY VENT W/O DIFFICULTY. CLARE PICC & LAC #20 BOTH INTACT AND PATENT. NEPRO RUNNING AT 30ML/HR. TELE MONITOR REVEALS ST 114 (THIS HAS BEEN HIS BASELINE). SAFETY MEASURES IN PLACE: BED AT LOWEST POSITION, LOCKED, RAILS UP X3, CALL WELSH WITHIN REACH. WILL ENDORSE TO NEXT SHIFT FOR KIERSTEN.
--- NOTE | 2021-06-25 07:00 | NUR ---
ASSISTANT STORE MANAGER OPERATIONS OPENING NOTE PATIENT AWAKE IN BED, A/O X3. TOLERATING WELL ON MECHANICAL VENTILATION WITH THE FOLLOWING SETTINGS: SHILEY #8, AC 16, FiO2 30, TV 450, PEEP 0, WITH NO S/S OF RESPIRATORY DISTRESS. NO COMPLAINTS OF PAIN OR DISCOMFORT AT THIS TIME. NEPHRO RUNNING VIA NG TUBE AT 30 ML/HR. ON TELE MONITOR AT 110 (BASELINE). CLARE PICC AND L AC #20 CLEAN, INTACT, AND FLUSHING WELL. SAFETY MEASURES IN PLACE: BED IN LOWEST LOCKED POSITION, SIDE RAILS UP X 2, CALL LIGHT WITHIN REACH. WILL CONTINUE TO MONITOR.
[2021-06-25 07:11] LABS: BASOPHILS % (AUTO) 0.2 % (0.0-2.0); EOSINOPHILS % (AUTO) 0.8 % (0.0-6.0); HEMATOCRIT 26 % (39-51); HEMOGLOBIN 8.5 g/dL (13.5-17.5); LYMPHOCYTES # (AUTO) 2.1 K/uL (0.8-4.8); LYMPHOCYTES % (AUTO) 17.1 % (20.0-44.0); MEAN CORPUSCULAR HGB CONC 32 g/dl (31.0-36.0); MEAN CORPUSCULAR VOLUME 88 fL (80-96); MONOCYTES # (AUTO) 0.4 K/uL (0.1-1.30); MONOCYTES % (AUTO) 3.6 % (2.0-12.0); NEUTROPHILS # (AUTO) 9.6 K/uL (1.8-8.9); NEUTROPHILS % (AUTO) 78.3 % (43.0-81.0); PLATELET COUNT (AUTO) 261 K/uL (150-450); RED BLOOD CELL COUNT(AUTO) 3.01 MIL/uL (4.5-6.0); WHITE BLOOD COUNT (AUTO) 12.2 K/uL (4.3-11.0)
[2021-06-25 07:21] LABS: CALCIUM, SERUM 7.9 mg/dL (8.5-10.1); CREATININE 0.6 mg/dL (0.6-1.3); MAGNESIUM 1.9 mg/dL (1.8-2.4); POTASSIUM 3.7 mmol/L (3.5-5.1)
[2021-06-25 07:52] VITALS: BP 100/70
[2021-06-25 08:06] LABS: LYMPHOCYTES % (MANUAL) 22 % (16-48); METAMYELOCYTES % 3 % (0-0); MONOCYTES % (MANUAL) 7 % (0-11.0); MYELOCYTES % 2 % (0-0); NEUTROPHILS % (MANUAL) 65 (42-76)
[2021-06-25 08:07] LABS: EOSINOPHILS % (MANUAL) 1 % (0-4)
[2021-06-25] MEDS: VANCOMYCIN HCL 0.75 GM in IV D5W 250 ML IV SCH (08:51)
[2021-06-25] MEDS: DAKINS QUARTER STRENGTH (0.125%) 480 ML BOTTLE TOP SCH (09:26)
[2021-06-25] MEDS: PANTOPRAZOLE 40 MG/PACK PACK NG SCH (09:26)
[2021-06-25 12:13] VITALS: BP 104/72
[2021-06-25] MEDS: SOD FERRIC GLUC 125 MG in IV NS 0.9% 100 ML IV SCH (14:02)
--- NOTE | 2021-06-25 14:58 | NUR ---
ALARM MECHANISM ADJUSTER NOTE PATIENT NG TUBE REMOVED AND RE-ATTACHED TO G-TUBE PER MD RECOMMENDATION. G-TUBE FLUSHES WELL, PLACEMENT CONFIRMED ON 06/23 VIA ABDOMINAL X-RAY. PATIENT NOW RECEIVING JEVITY 1.2 NELLY @ 30 ML/HR VIA G-TUBE.
[2021-06-25 16:01] VITALS: BP 112/75
--- NOTE | 2021-06-25 19:00 | NUR ---
FORMULA BOTTLER CLOSING NOTE PATIENT IS AWAKE IN BED, A/OX3. NO S/S OF DISTRESS; BREATHING WITHOUT DIFFICULTY BY VENT. CLARE PICC CLEAN, INTACT AND PATENT. TELE MONITOR REVEALS SR 108. JEVITY 1.2 @ 35ML/HR. SAFETY MEASURES IN PLACE: BED AT LOWEST POSITION, LOCKED, RAILS UP X3, CALL WELSH WITHIN REACH. WILL CONTINUE TO MONITOR PATIENT. Addendum: 06/25/21 at 2026 by SHASHI SWAN RN WILL ENDORSE TO AXLE AND FRAME MECHANIC FOR KIERSTEN
--- NOTE | 2021-06-25 19:28 | NUR ---
PROFILING MACHINE SET UP OPERATOR TOOL OPENING NOTE PATIENT IS AWAKE IN BED; FAMILY AT BEDSIDE. A/OX3. NO S/S OF DISTRESS; BREATHING WITHOUT DIFFICULTY BY VENT. CLARE PICC INTACT AND PATENT. TELE MONITOR REVEALS SR 100. JEVITY 1.2 @ 35ML/HR. SAFETY MEASURES IN PLACE: BED AT LOWEST POSITION, LOCKED, RAILS UP X3, CALL WELSH WITHIN REACH. WILL CONTINUE TO MONITOR PATIENT. Addendum: 06/25/21 at 2026 by SHASHI SWAN RN WILL ENDORSE TO BANQUET PREP COOK FOR KIERSTEN
[2021-06-26] MEDS: INSULIN REGULAR, HUMAN 100 UNIT/ML 3 ML VIAL SQ PRN ×4 (00:40→17:32)
[2021-06-26] MEDS: BLOOD SUGAR DIAGNOSTIC 1 EACH STRIP IN SCH ×4 (00:40→17:31)
[2021-06-26] MEDS: MEROPENEM 1 G in IV NS 0.9% 100 ML IV SCH ×2 (04:58→16:10)
[2021-06-26 06:20] LABS: BASOPHILS % (AUTO) 0.3 % (0.0-2.0); EOSINOPHILS % (AUTO) 1.2 % (0.0-6.0); HEMATOCRIT 25 % (39-51); HEMOGLOBIN 8.2 g/dL (13.5-17.5); LYMPHOCYTES # (AUTO) 1.9 K/uL (0.8-4.8); MEAN CORPUSCULAR HGB CONC 33 g/dl (31.0-36.0); MEAN CORPUSCULAR VOLUME 87 fL (80-96); MONOCYTES # (AUTO) 0.4 K/uL (0.1-1.30); MONOCYTES % (AUTO) 3.4 % (2.0-12.0); NEUTROPHILS # (AUTO) 8.6 K/uL (1.8-8.9); NEUTROPHILS % (AUTO) 78.1 % (43.0-81.0); PLATELET COUNT (AUTO) 299 K/uL (150-450); RED BLOOD CELL COUNT(AUTO) 2.87 MIL/uL (4.5-6.0)
--- NOTE | 2021-06-26 06:33 | NUR ---
FINISHER FIBERGLASS BOAT PARTS CLOSING NOTES PATIENT AWAKE IN BED. A/OX3. NO S/S OF DISTRESS; BREATHING BY VENT W/O DIFFICULTY. CLARE PICC TKO INTACT AND PATENT. TELE MONITOR REVEALS ST 111 (STAYING W/I IN HIS BASE). JEVITY 50ML/HR. SAFETY MEASURES IN PLACE: BED AT LOWEST POSITION, LOCKED, RAILS UP X3, CALL WELSH WITHIN REACH. WILL ENDORSE TO NEXT SHIFT FOR KIERSTEN.
[2021-06-26 07:07] LABS: CALCIUM, SERUM 7.7 mg/dL (8.5-10.1); CREATININE 0.5 mg/dL (0.6-1.3); MAGNESIUM 1.9 mg/dL (1.8-2.4); PHOSPHORUS 3.9 mg/dL (2.5-4.9); POTASSIUM 3.2 mmol/L (3.5-5.1)
[2021-06-26 08:00] VITALS: BP 116/79
[2021-06-26] MEDS: VANCOMYCIN HCL 0.75 GM in IV D5W 250 ML IV SCH (08:19)
[2021-06-26] MEDS: PANTOPRAZOLE 40 MG/PACK PACK NG SCH (08:19)
[2021-06-26] MEDS: DAKINS QUARTER STRENGTH (0.125%) 480 ML BOTTLE TOP SCH (08:20)
[2021-06-26] MEDS ORDERED: POTASSIUM CHLORIDE 20 MEQ POWDER PACKET GT ONE (09:00)
[2021-06-26 12:00] VITALS: BP 109/75
--- NOTE | 2021-06-26 12:00 | NUR ---
RN NOTES PATIENT SEEN BY ANTONETTE BLISS NP, REQUESTED FOR RECORDS FROM [facility]. PER FAMILY, PATIENT HAD CHOLECYSTECTOMY DRAINAGE BAG FROM [facility] ABOUT A MONTH AGO.
[2021-06-26] MEDS: ACETAMINOPHEN 650 MG/20.3 ML UDC NG PRN (13:57)
[2021-06-26] MEDS: SOD FERRIC GLUC 125 MG in IV NS 0.9% 100 ML IV SCH (14:51)
--- NOTE | 2021-06-26 15:00 | NUR ---
RN NOTES WOUND CARE/TREATMENT DONE; PROCEDURE TOLERATED WELL BY PATIENT. NO BLEEDING ON SACRAL WOUND SITE.
[2021-06-26 16:15] VITALS: BP 135/81
--- NOTE | 2021-06-26 18:17 | NUR ---
RN NOTES URINARY CATH DRAINAGE BAG CHANGED.
--- NOTE | 2021-06-26 19:25 | NUR ---
RN NOTES BEDSIDE ENDORSEMENT DONE W/ DEAN OF FACULTY RN. FAMILY AT BEDSIDE. PATIENT NOT IN ACUTE DISTRESS.
--- NOTE | 2021-06-26 19:30 | NUR ---
LETTER OF CREDIT DOCUMENT EXAMINER OPENING NOTES RECEIVED PATIENT AWAKE IN BED. A/OX2-3. ON MECHANICAL VENT WITH NO SOB OR S/S OF DISTRESS NOTED. ON EXTERNAL BUGGY LADLE TENDER READING ST 110 BPM. IV ACCESS CLARE PICC TKO INTACT AND PATENT. GRECO CATHETER DRAINING CLEAR YELLOW URINE. JEVITY 1.2 RUNNING @ 50ML/HR. SAFETY PRECAUTIONS IN PLACE. BED IN LOWEST LOCKED POSITION, HOB ELEVATED, SIDE RAILS UP X3, AND CALL LIGHT AND TABLE WITHIN REACH. ALL NEEDS MET AT THIS TIME.
--- NOTE | 2021-06-26 19:53 | NUR ---
RT PT RECVD AWAKE AND ALERT ON ORDERED AC VENT SETTINGS WITH VENT PLUGGED INTO RED OTULET WITH ALARMS ON AND AUDIBLE. ShILEY 8 XLT PROXIMAL TRACH IS PATENT AND SECURED. SUCTION DONE PRN/Q2. SPARE TRACH AND AMBU BAG AT BEDSIDE. NO SOB OR RESPIRATORY DISTRESS NOTED AT THIS TIME, WILL CONTINUE TO MONITOR. FAMILY IS AT BEDSIDE.
[2021-06-26 20:00] VITALS: BP 112/79
[2021-06-26 23:58] VITALS: BP 113/78
[2021-06-27] MEDS: BLOOD SUGAR DIAGNOSTIC 1 EACH STRIP IN SCH ×4 (00:23→17:30)
[2021-06-27 04:00] VITALS: BP 133/85
[2021-06-27] MEDS: MEROPENEM 1 G in IV NS 0.9% 100 ML IV SCH ×2 (04:25→17:34)
--- NOTE | 2021-06-27 06:37 | NUR ---
SLAB PULLER CLOSING NOTES PATIENT AWAKE IN BED. A/OX2-3. ON MECHANICAL VENT WITH NO SOB OR S/S OF DISTRESS NOTED. ON EXTERNAL EMBOSSING CALENDER OPERATOR READING ST 93 BPM. IV ACCESS CLARE PICC TKO INTACT AND PATENT. GRECO CATHETER DRAINING CLEAR YELLOW URINE. JEVITY 1.2 RUNNING @ 60ML/HR. SAFETY PRECAUTIONS IN PLACE AT ALL TIMES. BED IN LOWEST LOCKED POSITION, HOB ELEVATED, SIDE RAILS UP X3, AND CALL LIGHT AND TABLE WITHIN REACH. ALL NEEDS MET AT THIS TIME. WILL ENDORSE TO ONCOMING NURSE FOR KIERSTEN.
--- NOTE | 2021-06-27 07:29 | NUR ---
VALIDATION INTERN OPENING NOTES RECEIVED PATIENT AWAKE IN BED IN NO ACUTE SIGNS OF DISTRESS. HOB ELEVATED. A/O X2-3. RESPONSIVE TO VERBAL STIMULI. PT WITH TRACH SHILEY #8 CONNECTED MECHANICAL VENT AT PRESCRIBED SETTINGS, TOLERATING SETTINGS WELL WITH NO SOB NOTED. ON EXTERNAL COUNTER HAND WITH CURRENT READING OF NSR, HR 99, NO CARDIAC DISTRESS NOTED. TRIPLE LUMEN CLARE PICC LINE INTACT, PATENT AND FLUSHES WELL. . GRECO CATHETER DRAINING CLEAR YELLOW URINE VIA GRAVITY. G-TUBE IN PLACE WITH FEEDING OF JEVITY 1.2 RUNNING @ 60ML/HR, TOLERATING WELL. ASPIRATION PRECAUTIONS MAINTAINED. CHOLECYSTECTOMY DRAIN ON RIGHT SIDE OF ABDOMEN PRESENT WITH DARK GREENISH SECRETIONS NOTED. SAFETY PRECAUTIONS IN PLACED: BED IN LOWEST LOCKED POSITION, HOB ELEVATED, SIDE RAILS UP X3, CALL LIGHT WITHIN REACH. WILL CONTINUE TO MONITOR PT.
[2021-06-27] MEDS: VANCOMYCIN HCL 0.75 GM in IV D5W 250 ML IV SCH (08:33)
[2021-06-27 08:39] VITALS: BP 132/88
[2021-06-27 09:51] LABS: BASOPHILS % (AUTO) 0.4 % (0.0-2.0); HEMATOCRIT 25 % (39-51); LYMPHOCYTES # (AUTO) 1.4 K/uL (0.8-4.8); LYMPHOCYTES % (AUTO) 13.5 % (20.0-44.0); MEAN CORPUSCULAR HGB CONC 32 g/dl (31.0-36.0); MEAN CORPUSCULAR VOLUME 88 fL (80-96); MONOCYTES # (AUTO) 0.4 K/uL (0.1-1.30); MONOCYTES % (AUTO) 3.9 % (2.0-12.0); NEUTROPHILS # (AUTO) 8.4 K/uL (1.8-8.9); NEUTROPHILS % (AUTO) 81.2 % (43.0-81.0); PLATELET COUNT (AUTO) 324 K/uL (150-450); RED BLOOD CELL COUNT(AUTO) 2.82 MIL/uL (4.5-6.0); WHITE BLOOD COUNT (AUTO) 10.3 K/uL (4.3-11.0)
[2021-06-27] MEDS: PANTOPRAZOLE 40 MG/PACK PACK NG SCH (09:52)
[2021-06-27] MEDS: DAKINS QUARTER STRENGTH (0.125%) 480 ML BOTTLE TOP SCH (09:57)
[2021-06-27 10:41] LABS: ALBUMIN 1.6 g/dL (3.4-5.0); BILIRUBIN,TOTAL 0.4 mg/dL (0.2-1.0); CALCIUM, SERUM 8.5 mg/dL (8.5-10.1); CREATININE 0.6 mg/dL (0.6-1.3); TOTAL PROTEIN, SERUM 6.1 g/dL (6.4-8.2)
[2021-06-27] MEDS: INSULIN REGULAR, HUMAN 100 UNIT/ML 3 ML VIAL SQ PRN ×2 (11:56→17:31)
--- NOTE | 2021-06-27 19:38 | NUR ---
RN DISCHARGED NOTES PT DISCHARGED TO [facility] IN STABLE CONDITION. PT IS A/O X2-3. MOUTH WORDS IN SERBIAN. PT WITH TRACH AND CONNECTED TO MECHANICAL VENT AT PRESCRIBED SETTINGS, TOLERATING SETTINGS WELL. V/S TAKEN, STABLE AND RECORDED. PT HAS NO BELONGINGS. PHOTO OF SACRAL WOUND TAKEN AND FILED IN HIS CHART. FAMILY IS AWARE THAT PT IS DC'D BACK TO [facility]. PICC LINE ON CLARE KEPT IN PLACE, PT WILL CONTINUE TO RECEIVE IV ABX ORDERED. CALLED AND REPORT GIVEN DONA SANTIAGO. G-TUBE, GRECO CATHETER AND CHOLECYSTECTOMY TUBES ALL IN PLACE AND PATENT. REPORT GIVEN TO EMT'S AND HANDED EXIT FOLDER. PT LEFT UNIT AT 1930 VIA ANJELICARFARHEEN ACCOMPANIED BY 2 EMT'S AND RT FROM [facility]. CHARGE NURSE AWARE OF DISCHARGE.
[2021-06-28] MEDS ORDERED: METHIMAZOLE (5MG) 5 MG TABLET GT SCH (09:00)
== END 2021-06-27 19:30 | DRG 710 ==
LOC: ER 11:46 → ICU 15:48 → MED 06-24 14:50 → TELE 06-24 18:17
PROVIDERS: ATTEND Nurse Practitioner Family
PROC: 5A1955Z Respiratory Ventilation, Greater than 96 Consecutive Hours (ICD-10-PCS; principal; 2021-06-19)
PROC: 02HV33Z Insertion of Infusion Device into Superior Vena Cava, Percutaneous Approach (ICD-10-PCS; 2021-06-19)
PROC: B548ZZA Ultrasonography of Superior Vena Cava, Guidance (ICD-10-PCS; 2021-06-19)
PROC: 0KBN0ZZ Excision of Right Hip Muscle, Open Approach (ICD-10-PCS; 2021-06-25)
PROC: 0KBP0ZZ Excision of Left Hip Muscle, Open Approach (ICD-10-PCS; 2021-06-25)
DX: A41.9 Sepsis, unspecified organism (principal); N17.0 Acute kidney failure with tubular necrosis; R65.21 Severe sepsis with septic shock; J96.20 Acute and chronic respiratory failure, unspecified whether with hypoxia or hypercapnia; J95.851 Ventilator associated pneumonia; I21.4 Non-ST elevation (NSTEMI) myocardial infarction; E43 Unspecified severe protein-calorie malnutrition; D62 Acute posthemorrhagic anemia; E27.40 Unspecified adrenocortical insufficiency; L89.154 Pressure ulcer of sacral region, stage 4; E86.0 Dehydration; E86.1 Hypovolemia; E87.0 Hyperosmolality and hypernatremia; G93.1 Anoxic brain damage, not elsewhere classified; Z99.11 Dependence on respirator [ventilator] status; Z20.822 Contact with and (suspected) exposure to COVID-19; Z86.73 Personal history of transient ischemic attack (TIA), and cerebral infarction without residual deficits; R13.10 Dysphagia, unspecified; Z79.82 Long term (current) use of aspirin; I12.9 Hypertensive chronic kidney disease with stage 1 through stage 4 chronic kidney disease, or unspecified chronic kidney disease; N18.9 Chronic kidney disease, unspecified; D64.9 Anemia, unspecified; E05.90 Thyrotoxicosis, unspecified without thyrotoxic crisis or storm; E87.6 Hypokalemia; N40.0 Benign prostatic hyperplasia without lower urinary tract symptoms; K94.23 Gastrostomy malfunction; Y83.3 Surgical operation with formation of external stoma as the cause of abnormal reaction of the patient, or of later complication, without mention of misadventure at the time of the procedure; Y92.129 Unspecified place in nursing home as the place of occurrence of the external cause; Z90.49 Acquired absence of other specified parts of digestive tract; E11.22 Type 2 diabetes mellitus with diabetic chronic kidney disease; E61.1 Iron deficiency; E87.2 Acidosis; Y95 Nosocomial condition; K40.20 Bilateral inguinal hernia, without obstruction or gangrene, not specified as recurrent; K57.30 Diverticulosis of large intestine without perforation or abscess without bleeding; E88.09 Other disorders of plasma-protein metabolism, not elsewhere classified; Y84.8 Other medical procedures as the cause of abnormal reaction of the patient, or of later complication, without mention of misadventure at the time of the procedure; L02.211 Cutaneous abscess of abdominal wall
CPT/HCPCS: 31720; 36415; 36569; 71045-TC; 71250-TC; 74018; 76536-TC; 80048-TC; 80053-TC; 80061-TC; 80076-TC; 80202-TC; 82272-TC; 82533; 82728-TC; 82962-TC; 83540-TC; 83605-TC; 83690-TC; 83735-TC; 83880; 84100-TC; 84132-TC; 84439-TC; 84443-TC; 84484-TC; 85025-TC; 85730-TC; 86850-TC; 87040-TC; 87081-TC; 87086-TC; 93307-TC; 94002; 94002-TC; 94003-TC; 94760-TC; 94762-TC; 94799-TC; 99082-TC; A4623; A6253; A6403; A7526; C9113; C9803; G0378; J0692; J1720; J1815; J2185; J2270; J2370; J2916; J3370; J3475; J3480; J3490; J7030; J7040; J7042; J7050; J7060; J7070; J7120; P9016; Q9963